=== PATIENT | male | born 1995 | race Two or more races ===

== ENCOUNTER 2017-10-06 13:17 | Emergency (ER) | payer BC, OTHER ==
--- NOTE | 2017-10-06 15:58 | ED ---
Head Injury - HPI Summary HPI Summary: 22 male presents to ED with complaints of a head injury that he sustained yesterday while playing basketball around 9 pm 10/05/17. States he went up for a rebound and fell backward hitting the back of his head on the gymnasium floor. States he was "out of it and slow" for a few seconds after injury. Denies being unconscious "if anything maybe half a second". Was witnessed. Was evaluated by EMS after injury however denied transport. States he felt slightly dizzy, "foggy " and had a diffuse dull headache. This morning states symptoms were still there and he had a hard time concentrating while in class this morning. Denies visual changes, photophobia and gait disturbance. No numbness/tingling, weakness or vomiting. Intermittent nausea however has resolved since. No other complaints. No PMHx. Has not taken any medications. Denies neck pain or back pain. No other injury. - History Of Current Complaint Chief Complaint: EDHeadInjury Stated Complaint: HEAD INJURY Time Seen by Provider: 10/06/17 13:35 Hx Obtained From: Patient Mechanism Of Injury: Fall From A Standing Position Onset/Duration: Started Days Ago - last night Severity Currently: Mild Severity Initially: Mild Pain Intensity: 2 Pain Scale Used: 0-10 Numeric Location of Head Injury: Occipital Location: Diffuse Character: Dull, Aching Aggravating Factor(s): Movement Alleviating Factor(s): Rest Associated Signs And Symptoms: LOC (Time In Secs./Mins/Hrs) - "MAYBE half a second", Headache, Other: - dizziness, trouble concentrating - Allergies/Home Medications Allergies/Adverse Reactions: Allergies Allergy/AdvReac Type Severity Reaction Status Date / Time MS Sulfamethoxazole Allergy Rash Verified 07/29/16 22:34 w/Trimethoprim [From Bactrim] PMH/Surg Hx/FS Hx/Imm Hx Endocrine/Hematology History: Denies: Hx Anticoagulant Therapy, Hx Diabetes Cardiovascular History: Denies: Hx Hypertension Respiratory History: Denies: Hx Asthma - Surgical History Surgery Procedure, Year, and Place: n/a - Immunization History Immunizations Up to Date: Yes Infectious Disease History: No Infectious Disease History: Denies: Traveled Outside the [place] in Last 30 Days - Family History Known Family History: Positive: None - Social History Alcohol Use: Occasionally Substance Use Type: Reports: None Smoking Status (MU): Never Smoked Tobacco Review of Systems Constitutional: Negative Cardiovascular: Negative Respiratory: Negative Musculoskeletal: Negative Skin: Negative Neurological: Other - dizziness, trouble concentrating Positive: Headache All Other Systems Reviewed And Are Negative: Yes Physical Exam Triage Information Reviewed: Yes Vital Signs On Initial Exam: Initial Vitals Temp Pulse Resp BP Pulse Ox 97.8 F 84 16 128/76 99 10/06/17 13:30 10/06/17 13:30 10/06/17 13:30 10/06/17 13:30 10/06/17 13:30 Vital Signs Reviewed: Yes Appearance: Positive: Well-Appearing, No Pain Distress, Well-Nourished Skin: Positive: Warm, Skin Color Reflects Adequate Perfusion, Dry. Negative: Cold, Numb, Cyanosis @, Erythema @ Head/Face: Positive: Normal Head/Face Inspection, Other - no racoon eyes or ramirez signs. Negative: Scalp - no hematoma Eyes: Positive: Normal, EOMI, JOSE MANUEL, Conjunctiva Clear, Other: - normal visual acuity and peripheral du ENT: Positive: Hearing grossly normal, Pharynx normal, TMs normal Neck: Positive: Supple, Nontender Respiratory/Lung Sounds: Positive: Clear to Auscultation, Breath Sounds Present. Negative: Rales, Rhonchi, Wheezes Cardiovascular: Positive: Normal, RRR, Pulses are Symmetrical in both Upper and Lower Extremities. Negative: Murmur, Rub Abdomen Description: Positive: Nontender, Soft Bowel Sounds: Positive: Present Musculoskeletal: Positive: Normal, Strength/ROM Intact. Negative: Limited @, Interruption @, Pain @ Neurological: Positive: Normal - memory and concentration intact, normal neuro exam, Sensory/Motor Intact, Alert, Oriented to Person Place, Time, CN Intact II- III, Reflexes Intact, NV Bundle Intact Distally, Normal Gait, Finger to Nose - normal, Facial Symmetry, Speech Normal - Carney Coma Scale Best Eye Response: 4 - Spontaneous Best Motor Response: 6 - Obeys Commands Best Verbal Response: 5 - Oriented Coma Scale Total: 15 Diagnostics - Vital Signs Vital Signs Temp Pulse Resp BP Pulse Ox 10/06/17 13:30 97.8 F 84 16 128/76 99 - Laboratory Lab Statement: Any lab studies that have been ordered have been reviewed, and results considered in the medical decision making process. Head Injury Course/Dx Course Of Treatment: normal physical exam and neuro exam with normal vitals. injury occured > 19 hours ago without worsening symptoms. Symptoms have stayed the same since incident and appear to be from a concussion. No concerning BERNY or significant LOC, also according to [place] CT scan rule does not recommend Ct scan. No other concerns or concerning findings. Will treat as concussion. Aware of worsening signs and symptoms to watch out for. Fluids, rest, analgesia , appropriate sleep and avoid high concentrating/light stimulating activities. No physical activity until seen by PCP and cleared/re-evaluated. - Diagnoses Differential Diagnosis/HQI/PQRI: Concussion With LOC, Concussion Without LOC, Contusion, Other - head injury, headache Provider Diagnoses: Concussion Discharge - Discharge Plan Condition: Stable Disposition: HOME Patient Education Materials: Concussion (ED) Forms: *School Release Referrals: [facility] [Primary Care Provider] - Additional Instructions: Increase fluid intake, get plenty of rest. Ibuprofen/tylenol as needed for headache. Avoid physical activity, high concentrating activities and light stimulating activities. Take breaks as needed in class if you feel you need one. Any new or worsening symptoms please seek medical attention as discussed ( profuse vomiting, increased pain, altered mental status, vision changes). Follow up for re-eval within 1 week for recheck.
[2017-10-06 16:14] VITALS: BP 111/59
== END 2017-10-06 16:12 | disposition home or self-care (01) ==
LOC: ED 13:17
DX: S06.0X0A Concussion without loss of consciousness, initial encounter (principal); W19.XXXA Unspecified fall, initial encounter; Y93.67 Activity, basketball; Y92.310 Basketball court as the place of occurrence of the external cause; Z88.2 Allergy status to sulfonamides
CPT/HCPCS: 99282